=== PATIENT | male | born 1955 | race Caucasian/White ===

== ENCOUNTER 2017-01-26 19:33 | Emergency (ER) | payer OTHER ==
[2017-01-26] MEDS ORDERED: IBUPROFEN 600 MG TABLET PO ONE (20:03)
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
[2017-01-26 21:11] VITALS: BP 185/90
== END 2017-01-26 21:10 | disposition home or self-care (01) ==
LOC: ER 19:33
DX: S40.012A Contusion of left shoulder, initial encounter (principal); V49.40XA Driver injured in collision with unspecified motor vehicles in traffic accident, initial encounter; F17.200 Nicotine dependence, unspecified, uncomplicated; I10 Essential (primary) hypertension
CPT/HCPCS: 99284